=== PATIENT | female | born 1970 | race Two or more races ===

== ENCOUNTER 2019-02-11 12:53 | Emergency (ER) | payer OTHER ==
[2019-02-11] MEDS ORDERED: ondansetron/PF 4mg/2ml inj IV ONE (13:00)
[2019-02-11] MEDS ORDERED: morphine 4 MG/ML inj SYRINge IV PRN (13:00)
[2019-02-11 13:23] LABS: BASOPHILS % (AUTO) 0.4 % (0-1); EOSINOPHILS % (AUTO) 0.2 % (0-6); HEMATOCRIT 43.7 % (35.0-45.0); HEMOGLOBIN 14.7 g/dl (12.0-16.0); LYMPHOCYTES # (AUTO) 0.9 X10'3 (1.1-4.8); LYMPHOCYTES % (AUTO) 8.7 % (21-51); MEAN CORPUSCULAR HEMOGLOBIN 30.7 PG (27.0-31.0); MEAN CORPUSCULAR HGB CONC 33.6 g/dL (33.0-36.5); MEAN CORPUSCULAR VOLUME 91.4 FL (78-98); MEAN PLATELET VOLUME 8.3 FL (7.4-10.4); MONOCYTES # (AUTO) 0.4 X10'3 (0-0.9); MONOCYTES % (AUTO) 4.1 % (2-12); NEUTROPHILS # (AUTO) 8.8 X10'3 (1.8-7.7); NEUTROPHILS % (AUTO) 86.6 % (42-75); PLATELET COUNT 324 X10'3 (140-440); RED BLOOD COUNT 4.78 X10'6 (4.20-5.60); RED CELL DISTRIBUTION WIDTH 14.1 % (11.5-14.5); WHITE BLOOD COUNT 10.2 X10'3 (4.5-11.0)
[2019-02-11 13:28] LABS: PARTIAL THROMBOPLASTIN TIME 25 SECONDS (22-32)
[2019-02-11 13:29] LABS: ANION GAP 9 (8-16); BLOOD UREA NITROGEN 8 MG/DL (7-18); CHLORIDE 103 MMOL/L (99-107); GLUCOSE 109 MG/DL (70-104); POTASSIUM 3.4 MMOL/L (3.5-5.1); SODIUM 138 MMOL/L (135-145); TOTAL CARBON DIOXIDE 26.4 MMOL/L (24-32)
[2019-02-11 13:30] LABS: ALANINE AMINOTRANSFERASE 27 U/L (12-78); ALBUMIN 4.1 G/DL (3.4-5.0); ALKALINE PHOSPHATASE 62 IU/L (46-116); ASPARTATE AMINO TRANSFERASE 28 U/L (10-37); BILIRUBIN,TOTAL 0.6 MG/DL (0.1-1.0); CALCIUM 8.8 MG/DL (8.5-10.1); TOTAL PROTEIN 8.2 G/DL (6.4-8.2); eGFR 77 ML/MIN
--- NOTE | 2019-02-11 13:30 | NUR ---
Pt. offered Morphine and Zofran, Pt. did not want medications at this time. Did not non-admin incase pt. needed medications at a later time.
--- NOTE | 2019-02-11 13:30 | NUR ---
Pt. to CT
[2019-02-11] MEDS ORDERED: iohexol 300mg/ml 100ml inj. ONE (13:40)
[2019-02-11 14:01] LABS: ETHANOL < 0.010 GM/DL (0.0-0.010)
--- NOTE | 2019-02-11 14:08 | NUR ---
Pt. back from CT in stable condition
[2019-02-11] MEDS ORDERED: HYDR-3965 PO (14:36)
[2019-02-11 15:18] VITALS: BP 133/81
== END 2019-02-11 15:11 | disposition home or self-care (01) ==
LOC: ER 12:54
DX: S32.039A Unspecified fracture of third lumbar vertebra, initial encounter for closed fracture (principal); S90.32XA Contusion of left foot, initial encounter; S30.811A Abrasion of abdominal wall, initial encounter; S10.91XA Abrasion of unspecified part of neck, initial encounter; S20.319A Abrasion of unspecified front wall of thorax, initial encounter; M47.812 Spondylosis without myelopathy or radiculopathy, cervical region; Z79.899 Other long term (current) drug therapy; V87.7XXA Person injured in collision between other specified motor vehicles (traffic), initial encounter; Y93.89 Activity, other specified; Y92.410 Unspecified street and highway as the place of occurrence of the external cause; Y99.8 Other external cause status
CPT/HCPCS: 36415; 70450; 71260; 72125; 73630; 74177; 80053; 80320; 85025; 85610; 85730; 93005; 99284; J2270; J2405; Q9967